=== PATIENT | female | born 1970 | race Caucasian/White ===

== ENCOUNTER 2017-02-01 05:51 | Inpatient (IN) | payer MEDICAID ==
[~2017-02-01] VITALS: Ht 149.9 cm; Wt 102.8 kg
[~2017-02-01 05:51] MED LIST: CEFD300C2 PO; CYCL-259 PO; DOXY100T PO; FLUO10CA7 PO; FLUT1DIS3 INH; FURO-93 PO; FURO20TA3 PO; GABA100C8 PO; GABA300C10 PO; GLIP10TA13 PO; GLIP5TAB10 PO; HOME O2; HYDR10TA4 PO; INSU100I28 SQ-INSULIN; INSU100V8 SQ; METF100010 PO; METF10002 PO; ONDA4TAB7 PO; OXCA150T PO; OXYC-223 PO; PRED20TA PO; PRED50TA PO; QUET25TA PO; QUET25TA5 PO
[2017-02-01] MEDS ORDERED: SODIUM CHLORIDE 0.9% 1,000 ML IV ONE (06:24)
[2017-02-01] MEDS ORDERED: SODIUM CHLORIDE FLUSH 10ML SYR IVF ONE (06:30)
[2017-02-01] MEDS ORDERED: methylPREDNISolone SOD SUCC 125 MG/2 ML IVP ONE (06:30)
[2017-02-01] MEDS ORDERED: ALBUTEROL/IPRATROPIUM 2.5MG/0.5MG, 3 ML NPPB ONE (06:30)
[2017-02-01] MEDS ORDERED: AZITHROMYCIN 500 MG in SODIUM CHLORIDE 0.9% 250 ML IVPB ONE (06:30)
[2017-02-01] MEDS ORDERED: ALBUTEROL/IPRATROPIUM 2.5MG/0.5MG, 3 ML ONE (06:33)
[2017-02-01] MEDS ORDERED: methylPREDNISolone SOD SUCC 125 MG/2 ML ONE (06:49)
[2017-02-01 07:09] LABS: HEMOGLOBIN 15.6 g/dL (11.7-16.4)
[2017-02-01 07:17] LABS: ASPARTATE AMINO TRANSFERASE 16 U/L (15-37); BLOOD UREA NITROGEN 13 mg/dL (7-18)
[2017-02-01 07:22] LABS: IS PT STATUS REG ER OR PRE ER? YES
[2017-02-01] MEDS ORDERED: ONDANSETRON 2MG/ML, 2ML ONE (07:58)
[2017-02-01] MEDS ORDERED: CEFTRIAXONE PMX 1GM/50ML 50 ML IV ONE (08:00)
[2017-02-01] MEDS ORDERED: ONDANSETRON 2MG/ML, 2ML IVPush ONE (08:00)
[2017-02-01] MEDS ORDERED: METR500T4 PO (08:57)
[2017-02-01] MEDS ORDERED: INSU100V8 SQ (08:57)
[2017-02-01] MEDS ORDERED: FLUT1DIS3 INH (08:57)
[2017-02-01] MEDS ORDERED: GLIP10TA13 PO (08:58)
[2017-02-01] MEDS ORDERED: CEFTRIAXONE PMX 1GM/50ML 50 ML ONE (09:00)
[2017-02-01] MEDS ORDERED: QUET50TA5 PO (09:08)
[2017-02-01] MEDS ORDERED: ONDANSETRON ODT 4 MG PO PRN (09:30)
[2017-02-01] MEDS: ENOXAPARIN 40 MG/0.4 ML SQ SCH ×2 (09:30→10:56)
[2017-02-01] MEDS ORDERED: VANCOMYCIN PER PHARMACY MC PRN (09:30)
[2017-02-01] MEDS ORDERED: GUAIFENESIN/DM 200-20MG, 10ML UDC PO PRN (09:30)
[2017-02-01] MEDS: NICOTINE 14MG/24 HR PATCH.TD24 TD SCH (09:30)
[2017-02-01] MEDS ORDERED: ONDANSETRON 2MG/ML, 2ML IVP PRN (09:30)
[2017-02-01] MEDS ORDERED: PIPERACILLIN/TAZO/PMX 3.375GM 50 ML IV SCH (09:30)
[2017-02-01] MEDS ORDERED: ACETAMINOPHEN 325 MG TABLET PO PRN (09:30)
[2017-02-01 10:43] VITALS: BP 102/66
[2017-02-01] MEDS: GUAIFENESIN ER 600 MG TABLET PO SCH ×2 (10:55→21:08)
[2017-02-01] MEDS: LEVOFLOXACIN/PMX 750MG/150ML 150 ML IV SCH (10:56)
[2017-02-01] MEDS ORDERED: PHARMACOKINETIC MONITORING MC PRN (11:00)
[2017-02-01] MEDS ORDERED: PHARMACOKINETIC CONSULTATION MC ONE (11:00)
[2017-02-01] MEDS: INSULIN REGULAR 100 UNITS/ML, 3ML VIAL SQ-INSULIN SCH ×3 (11:00→21:26)
[2017-02-01] MEDS ORDERED: VANCOMYCIN 2,000 MG in SODIUM CHLORIDE 0.9% 500 ML IV SCH (11:00)
[2017-02-01] MEDS: VANCOMYCIN 2,000 MG in SODIUM CHLORIDE 0.9% 500 ML IV SCH (12:00)
[2017-02-01 13:36] VITALS: BP 124/74
[2017-02-01] MEDS: FUROSEMIDE 20 MG/2 ML IV SCH (17:03)
[2017-02-01] MEDS: metroNIDAZOLE 500 MG TABLET PO SCH ×2 (17:03→21:07)
[2017-02-01 18:40] VITALS: BP 100/67
[2017-02-02] MEDS: HYDROcodone/APAP 5/325 TABLET PO PRN ×4 (01:13→22:07)
[2017-02-02 03:40] VITALS: BP 97/60
[2017-02-02 06:13] LABS: HEMOGLOBIN 12.4 g/dL (11.7-16.4)
[2017-02-02 06:17] LABS: ASPARTATE AMINO TRANSFERASE 12 U/L (15-37); BLOOD UREA NITROGEN 22 mg/dL (7-18)
[2017-02-02 06:58] VITALS: BP 115/75
[2017-02-02] MEDS: INSULIN REGULAR 100 UNITS/ML, 3ML VIAL SQ-INSULIN SCH ×4 (07:00→21:57)
[2017-02-02] MEDS ORDERED: FLUTICASONE/VILANTEROL 200-25MCG/INH INH SCH (09:00)
[2017-02-02] MEDS: ENOXAPARIN 40 MG/0.4 ML SQ SCH (09:30)
[2017-02-02] MEDS: NICOTINE 14MG/24 HR PATCH.TD24 TD SCH (09:30)
[2017-02-02] MEDS: LEVOFLOXACIN/PMX 750MG/150ML 150 ML IV SCH (10:49)
[2017-02-02] MEDS: metroNIDAZOLE 500 MG TABLET PO SCH ×3 (10:49→21:57)
[2017-02-02] MEDS: GUAIFENESIN ER 600 MG TABLET PO SCH ×2 (10:49→21:57)
[2017-02-02] MEDS: FUROSEMIDE 20 MG/2 ML IV SCH ×2 (10:50→16:26)
[2017-02-02] MEDS: VANCOMYCIN 2,000 MG in SODIUM CHLORIDE 0.9% 500 ML IV SCH ×2 (13:07)
[2017-02-02 13:52] VITALS: BP 95/64
[2017-02-02 20:10] VITALS: BP 97/66
[2017-02-03] MEDS: VANCOMYCIN 2,000 MG in SODIUM CHLORIDE 0.9% 500 ML IV SCH ×2 (01:05→14:35)
[2017-02-03 03:09] VITALS: BP 107/69
[2017-02-03 05:04] LABS: HEMOGLOBIN 12.6 g/dL (11.7-16.4)
[2017-02-03] MEDS: HYDROcodone/APAP 5/325 TABLET PO PRN ×3 (05:05→21:51)
[2017-02-03 05:16] LABS: ASPARTATE AMINO TRANSFERASE 11 U/L (15-37); BLOOD UREA NITROGEN 26 mg/dL (7-18)
[2017-02-03] MEDS: INSULIN REGULAR 100 UNITS/ML, 3ML VIAL SQ-INSULIN SCH ×4 (07:00→21:51)
[2017-02-03] MEDS: FUROSEMIDE 20 MG/2 ML IV SCH (07:30)
[2017-02-03 08:42] VITALS: BP 93/60
[2017-02-03] MEDS ORDERED: FLUTICASONE/VILANTEROL 100-25MCG/INH INH SCH (09:00)
[2017-02-03] MEDS: FLUTICASONE/VILANTEROL 200-25MCG/INH INH SCH (09:00)
[2017-02-03] MEDS: ENOXAPARIN 40 MG/0.4 ML SQ SCH (09:30)
[2017-02-03] MEDS: NICOTINE 14MG/24 HR PATCH.TD24 TD SCH (09:30)
[2017-02-03] MEDS: LEVOFLOXACIN/PMX 750MG/150ML 150 ML IV SCH (11:18)
[2017-02-03] MEDS: GUAIFENESIN ER 600 MG TABLET PO SCH ×2 (11:18→21:51)
[2017-02-03] MEDS: metroNIDAZOLE 500 MG TABLET PO SCH ×3 (11:18→21:51)
[2017-02-03 15:04] VITALS: BP 97/64
[2017-02-03] MEDS: ALBUTEROL SULFATE 2.5 MG/3 ML NPPB PRN (17:30)
[2017-02-03 19:44] VITALS: BP 101/65
[2017-02-04 00:35] VITALS: BP 109/63
[2017-02-04] MEDS: VANCOMYCIN 2,000 MG in SODIUM CHLORIDE 0.9% 500 ML IV SCH ×2 (04:44→14:11)
[2017-02-04 09:00] VITALS: BP 106/66
[2017-02-04] MEDS: FLUTICASONE/VILANTEROL 200-25MCG/INH INH SCH (09:00)
[2017-02-04 09:10] LABS: BLOOD UREA NITROGEN 21 mg/dL (7-18)
[2017-02-04] MEDS: ENOXAPARIN 40 MG/0.4 ML SQ SCH ×2 (09:30→20:00)
[2017-02-04] MEDS: INSULIN REGULAR 100 UNITS/ML, 3ML VIAL SQ-INSULIN SCH ×4 (09:53→20:00)
[2017-02-04] MEDS: GUAIFENESIN ER 600 MG TABLET PO SCH ×2 (09:55→20:00)
[2017-02-04] MEDS: LEVOFLOXACIN/PMX 750MG/150ML 150 ML IV SCH (09:55)
[2017-02-04] MEDS: metroNIDAZOLE 500 MG TABLET PO SCH ×3 (09:55→20:00)
[2017-02-04] MEDS: NICOTINE 14MG/24 HR PATCH.TD24 TD SCH (09:56)
[2017-02-04 10:09] LABS: HEMOGLOBIN 13.2 g/dL (11.7-16.4)
[2017-02-04] MEDS ORDERED: FUROSEMIDE 20 MG/2 ML IV SCH (11:00)
[2017-02-04 14:00] VITALS: BP 106/66
[2017-02-04 19:38] VITALS: BP 121/79
[2017-02-04] MEDS: HYDROcodone/APAP 5/325 TABLET PO PRN (20:01)
[2017-02-05] MEDS: HYDROcodone/APAP 5/325 TABLET PO PRN ×2 (01:31→08:56)
[2017-02-05 01:50] VITALS: BP 103/66
[2017-02-05 06:40] VITALS: BP 101/65
[2017-02-05] MEDS: GUAIFENESIN ER 600 MG TABLET PO SCH (08:56)
[2017-02-05] MEDS: INSULIN REGULAR 100 UNITS/ML, 3ML VIAL SQ-INSULIN SCH ×2 (08:56→11:15)
[2017-02-05] MEDS: metroNIDAZOLE 500 MG TABLET PO SCH (08:56)
[2017-02-05] MEDS: FLUTICASONE/VILANTEROL 200-25MCG/INH INH SCH (08:57)
[2017-02-05] MEDS: NICOTINE 14MG/24 HR PATCH.TD24 TD SCH (08:57)
[2017-02-05] MEDS: ENOXAPARIN 40 MG/0.4 ML SQ SCH (08:57)
[2017-02-05] MEDS: LEVOFLOXACIN/PMX 750MG/150ML 150 ML IV SCH (09:00)
[2017-02-05 09:06] LABS: HEMOGLOBIN 13.5 g/dL (11.7-16.4)
[2017-02-05 09:19] LABS: ASPARTATE AMINO TRANSFERASE 5 U/L (15-37); BLOOD UREA NITROGEN 28 mg/dL (7-18)
[2017-02-05] MEDS: ALBUTEROL SULFATE 2.5 MG/3 ML NPPB PRN (10:37)
[2017-02-05] MEDS ORDERED: PRED20TA PO (11:05)
[2017-02-05] MEDS ORDERED: LEVO750T26 PO (11:05)
== END 2017-02-05 13:50 | disposition home or self-care (01) | DRG 871 ==
LOC: ED 07:51 → EDIP 09:19 → 3NW 10:14
PROVIDERS: ADMIT Family Medicine; ATTEND Family Medicine
PROC: 0T9B70Z Drainage of Bladder with Drainage Device, Via Natural or Artificial Opening (ICD-10-PCS; principal; 2017-02-01)
DX: A41.9 Sepsis, unspecified organism (principal); J96.20 Acute and chronic respiratory failure, unspecified whether with hypoxia or hypercapnia; J18.9 Pneumonia, unspecified organism; J44.0 Chronic obstructive pulmonary disease with (acute) lower respiratory infection; I50.30 Unspecified diastolic (congestive) heart failure; J44.1 Chronic obstructive pulmonary disease with (acute) exacerbation; Z99.81 Dependence on supplemental oxygen; Z91.19 Patient's noncompliance with other medical treatment and regimen; Z59.0 Homelessness; Z79.4 Long term (current) use of insulin; E11.9 Type 2 diabetes mellitus without complications; F43.10 Post-traumatic stress disorder, unspecified; F41.0 Panic disorder [episodic paroxysmal anxiety]; F31.9 Bipolar disorder, unspecified; F20.9 Schizophrenia, unspecified; Z86.718 Personal history of other venous thrombosis and embolism; I11.0 Hypertensive heart disease with heart failure; Z82.49 Family history of ischemic heart disease and other diseases of the circulatory system; Z82.3 Family history of stroke; Z80.0 Family history of malignant neoplasm of digestive organs; F12.90 Cannabis use, unspecified, uncomplicated; F17.210 Nicotine dependence, cigarettes, uncomplicated; Z88.0 Allergy status to penicillin; Z88.8 Allergy status to other drugs, medicaments and biological substances; Z91.041 Radiographic dye allergy status; J44.9 Chronic obstructive pulmonary disease, unspecified; R65.20 Severe sepsis without septic shock; F19.10 Other psychoactive substance abuse, uncomplicated; N76.0 Acute vaginitis; T38.0X5A Adverse effect of glucocorticoids and synthetic analogues, initial encounter
CPT/HCPCS: 36415; 71010; 80048; 80053; 80202; 81001; 82962; 83605; 83880; 84145; 84484; 85025; 87040; 87086; 93005; 93306; 94640; 96365; 96367; 96375; J0456; J0696; J1650; J1956; J2405; J3370; J7613; J7620; J1940; J2930; J7030; J7040; J7050; J7512

== ENCOUNTER 2017-04-08 03:26 | Emergency (ER) | payer MEDICAID ==
[~2017-04-08] VITALS: Ht 149.9 cm; Wt 95.8 kg
[~2017-04-08 03:26] MED LIST changes: -CEFD300C2 PO; +CEFD300C37 PO; +GABA-826 PO; -GABA100C8 PO; +LEVO750T26 PO; +METR500T4 PO; +QUET50TA5 PO
[2017-04-08 03:28] VITALS: BP 120/80
== END 2017-04-08 06:21 | disposition home or self-care (01) ==
LOC: ED 04:10
DX: G89.11 Acute pain due to trauma (principal); M25.531 Pain in right wrist; F12.10 Cannabis abuse, uncomplicated; F15.10 Other stimulant abuse, uncomplicated; Z72.89 Other problems related to lifestyle; I11.0 Hypertensive heart disease with heart failure; I50.9 Heart failure, unspecified; E11.9 Type 2 diabetes mellitus without complications; J44.9 Chronic obstructive pulmonary disease, unspecified; Z90.49 Acquired absence of other specified parts of digestive tract; Z88.0 Allergy status to penicillin; Z88.6 Allergy status to analgesic agent; W01.0XXA Fall on same level from slipping, tripping and stumbling without subsequent striking against object, initial encounter; Y93.89 Activity, other specified; Y92.89 Other specified places as the place of occurrence of the external cause; Y99.9 Unspecified external cause status
CPT/HCPCS: 99284